=== PATIENT | female | born 2000 | race Native Hawaiian/Other Pacific Islander ===

== ENCOUNTER 2021-02-04 17:27 | Emergency (ER) | payer OTHER ==
[~2021-02-04] VITALS: Ht 152.4 cm; Wt 51.5 kg
[2021-02-04] MEDS ORDERED: CEPHALEXIN 500 MG CAP PO ONE (20:05)
[2021-02-04 20:10] LABS: GC DNA AMPLIFICATION NEGATIVE (NEGATIVE)
[2021-02-04] MEDS ORDERED: CEPH500C PO (20:15)
[2021-02-04 20:23] VITALS: BP 108/74
== END 2021-02-04 20:26 | disposition home or self-care (01) ==
LOC: M ED 17:27
DX: N30.91 Cystitis, unspecified with hematuria (principal)

== ENCOUNTER 2022-08-09 10:31 | Emergency (ER) | payer OTHER ==
[~2022-08-09] VITALS: Ht 152.4 cm; Wt 63.7 kg
[~2022-08-09 10:31] MED LIST: CEPH500C PO
[2022-08-09] MEDS ORDERED: IBUP-1022 (10:53)
[2022-08-09 13:10] LABS: RSV AMPLIFICATION NEGATIVE (NEGATIVE)
[2022-08-09] MEDS ORDERED: VENTAER INH (13:33)
[2022-08-09 13:40] VITALS: BP 119/86
== END 2022-08-09 13:41 | disposition home or self-care (01) ==
LOC: M ED 10:31
DX: J06.9 Acute upper respiratory infection, unspecified (principal); R11.2 Nausea with vomiting, unspecified; F17.290 Nicotine dependence, other tobacco product, uncomplicated

== ENCOUNTER → 2023-07-10 | Outpatient (CLI) | payer OTHER ==
[~2023-07-10] MED LIST changes: +IBUP-1022; +VENTAER INH
[2023-07-10 15:15] LABS: GLUCOSE,RANDOM 92 MG/DL (LESS THAN 200)
[2023-07-10 15:17] LABS: PROLACTIN 11.74 NG/ML
[2023-07-10 15:18] LABS: FOLLICLE STIMULATING HORMONE 6.9 mIU/ML; LUTEINIZING HORMONE 22.1 mIU/ML; THYROID STIMULATING HORMONE 1.454 uIU/ML (0.55-4.78)
[2023-07-10 15:19] LABS: TESTOSTERONE 37 NG/DL (14-76)
[2023-07-10 15:20] LABS: PROGESTERONE 0.49 NG/ML
[2023-07-10 15:33] LABS: HCG, SERUM QUALITATIVE NEGATIVE (NEGATIVE)
== END ==
LOC: M LAB 14:01
PROVIDERS: ATTEND Obstetrics & Gynecology Obstetrics
DX: N97.9 Female infertility, unspecified (principal)

== ENCOUNTER 2023-12-03 23:56 | Emergency (ER) | payer OTHER ==
[~2023-12-03] VITALS: Ht 152.4 cm; Wt 69.8 kg
[2023-12-03 23:56] VITALS: BP 120/67; TEMP 97.7; O2SAT 98
== END 2023-12-04 00:20 | disposition left against medical advice (07) ==
LOC: M ED 23:56
DX: Z53.21 Procedure and treatment not carried out due to patient leaving prior to being seen by health care provider (principal)